=== PATIENT | male | born 1940 | race Two or more races ===

== ENCOUNTER 2021-07-06 10:49 | Emergency (ER) | payer OTHER ==
[~2021-07-06] VITALS: Ht 172.7 cm; Wt 85.7 kg
[2021-07-06 10:49] VITALS: BP 144/83
== END 2021-07-06 14:18 | disposition home or self-care (01) ==
LOC: ER 10:49
DX: M51.36 Other intervertebral disc degeneration, lumbar region (principal); M25.551 Pain in right hip; I10 Essential (primary) hypertension; E11.9 Type 2 diabetes mellitus without complications; E78.5 Hyperlipidemia, unspecified
CPT/HCPCS: 72131; 73502

== ENCOUNTER 2024-04-02 05:53 | Inpatient (IN) | payer OTHER ==
[~2024-04-02] VITALS: Ht 180.3 cm; Wt 75.0 kg
[2024-04-02 07:31] LABS: Urine Bacteria None Seen /hpf (None Seen); Urine WBC None Seen /hpf (0 - 3)
[2024-04-02 07:31] LABS: Basophils # (auto) 0 10 ^3/uL (0-0.2); Basophils % (auto) 1.1 % (0.0-2.0); Eosinophils # (auto) 0.1 10 ^3/uL (0-0.8); Eosinophils % (auto) 1.3 % (0.0-7.0); Hematocrit 36.3 % (41.0-53.0); Lymphocytes # (auto) 1.2 10 ^3/uL (0.4-5.4); Lymphocytes % (auto) 26.9 % (10.0-50.0); Mean Corpuscular Hemoglobin 28.2 pg (28.0-32.0); Mean Corpuscular Volume 85.4 fL (80.0-100.0); Monocytes # (auto) 0.6 10 ^3/uL (0-1.3); Monocytes % (auto) 14.1 % (0.0-12.0); Neutrophils # (auto) 2.4 10 ^3/uL (1.6-8.6); Neutrophils % (auto) 56.6 % (37.0-80.0); Nucleated Red Blood Cells % 0.1 %; Red Blood Cells 4.25 10^6/uL (4.5-5.90); Red Cell Distribution Width 14.9 % (11.8-14.3); White Blood Cell 4.3 10^3/uL (4.4-10.8)
[2024-04-02 07:37] LABS: Urine Blood Negative /uL (Negative); Urine Clarity Clear (Clear); Urine Color Colorless (Yellow); Urine Protein, UAD Negative (Negative); Urine Specific Gravity 1.009 (1.001-1.035); Urine Urobilinogen Normal (Negative)
[2024-04-02 07:37] LABS: Chloride 105 mmol/L (98-107); Potassium 3.7 mmol/L (3.5-5.1); Sodium 141 mmol/L (136-145)
[2024-04-02 07:38] LABS: Anion Gap 7 (5-15); Carbon Dioxide 29 mmol/L (20-30)
[2024-04-02 07:39] LABS: Calcium 10.1 mg/dL (8.7-10.4)
[2024-04-02 07:43] LABS: Glucose 105 mg/dL (74-106)
[2024-04-02 07:44] LABS: BUN/Creatinine Ratio 18.9 (10.0-20.0); Blood Urea Nitrogen 25 mg/dL (9-23)
[2024-04-02 09:11] VITALS: O2SAT 98
[2024-04-02] MEDS ORDERED: SITA50TA PO (11:41)
[2024-04-02] MEDS ORDERED: METO-289 PO (11:41)
[2024-04-02] MEDS ORDERED: LOSA-535 PO (11:41)
[2024-04-02] MEDS ORDERED: AMLO1TAB23 PO (11:41)
[2024-04-02] MEDS ORDERED: ONDANSETRON HCL 4 MG/2 ML VIAL IV PRN (11:45)
[2024-04-02] MEDS ORDERED: DEXTROSE (50%) 50ML SYRG IV PRN (11:45)
[2024-04-02] MEDS: ENOXAPARIN SOD 30 MG/0.3 ML SYRINGE SC SCH (11:45)
[2024-04-02 12:02] LABS: Triglycerides 176 mg/dL (< 150)
[2024-04-02 12:03] LABS: LDL Cholesterol 90 mg/dL (< 100)
[2024-04-02 12:04] LABS: Cholesterol 169 mg/dL (< 200); HDL Cholesterol 36 mg/dL (40-59)
[2024-04-02] MEDS: DOCUSATE SOD 100 MG CAP PO ONE (12:55)
[2024-04-02] MEDS: SODIUM CHLORIDE 0.9% 1,000 ML IV SCH (12:56)
[2024-04-02] MEDS: MORPHINE SULFATE INJ 2 MG/ml SYRG IV ONE (15:49)
[2024-04-02] MEDS: InsuLIN REG 1unit/0.01ml Soln (100units/ml) SC SCH (17:00)
[2024-04-02] MEDS: ACCU-CHEK COMFORT CURVE STRIP VI SCH (17:11)
[2024-04-02 19:30] VITALS: RESP 14; O2SAT 97
[2024-04-02] MEDS: DOCUSATE SOD 100 MG CAP PO SCH (22:20)
[2024-04-02 23:12] VITALS: BP 132/69; PULSE 53; RESP 17; TEMP 97.6; O2SAT 100
[2024-04-02 23:33] VITALS: BP 132/69; PULSE 53; RESP 17; TEMP 97.6; O2SAT 100
[2024-04-03] VITALS (8 sets, daily range): BP systolic 108–134; BP diastolic 36–83; PULSE 47–84; RESP 17–20; TEMP 97.3–98.3; O2SAT 94–100
[2024-04-03] MEDS ORDERED: HYDR25TA5 PO (02:31)
[2024-04-03] MEDS ORDERED: ATOR10TA PO (02:31)
[2024-04-03] MEDS ORDERED: PANC24002 PO (02:31)
[2024-04-03 07:05] LABS: Basophils # (auto) 0 10 ^3/uL (0-0.2); Eosinophils # (auto) 0.1 10 ^3/uL (0-0.8); Eosinophils % (auto) 1.4 % (0.0-7.0); Hematocrit 36.2 % (41.0-53.0); Hemoglobin 12.1 g/dL (13.5-17.5); Lymphocytes % (auto) 26.3 % (10.0-50.0); Mean Corpuscular Hemoglobin 28.7 pg (28.0-32.0); Mean Corpuscular Hgb Conc. 33.4 g/dL (32.0-36.0); Monocytes # (auto) 0.6 10 ^3/uL (0-1.3); Monocytes % (auto) 15.7 % (0.0-12.0); Neutrophils # (auto) 2.1 10 ^3/uL (1.6-8.6); Neutrophils % (auto) 55.6 % (37.0-80.0); Nucleated Red Blood Cells % 0.1 %; Red Blood Cells 4.21 10^6/uL (4.5-5.90); Red Cell Distribution Width 14.8 % (11.8-14.3); White Blood Cell 3.8 10^3/uL (4.4-10.8)
[2024-04-03 07:54] LABS: Alanine Aminotransferase 12 U/L (7-40); Albumin 3.7 g/dL (3.2-4.8); Alkaline Phosphatase 63 U/L (46-116); Anion Gap 10 (5-15); Aspartate Aminotransferase 12 U/L (13-40); Blood Urea Nitrogen 12 mg/dL (9-23); Calcium 9.4 mg/dL (8.7-10.4); Carbon Dioxide 24 mmol/L (20-30); Chloride 106 mmol/L (98-107); Glucose 81 mg/dL (74-106); Potassium 3.2 mmol/L (3.5-5.1); Sodium 140 mmol/L (136-145); Total Protein 6.5 g/dL (5.7-8.2)
[2024-04-03 08:36] LABS: Bilirubin, Total 0.7 mg/dL (0.2-1.0)
[2024-04-03] MEDS: LACTULOSE 20Gm/30ML SOLN PO ONE (15:45)
[2024-04-04 05:00] VITALS: BP 106/73; PULSE 53; RESP 19; TEMP 98.5; O2SAT 99
[2024-04-04 08:08] VITALS: O2SAT 95
[2024-04-04 08:43] VITALS: BP 132/76; PULSE 57; RESP 20; TEMP 97.6; O2SAT 100
[2024-04-04 08:57] LABS: Hepatitis B Surface Antigen Negative (Negative)
[2024-04-04 09:17] LABS: Hepatitis C Antibody Negative (Negative)
[2024-04-04 11:46] LABS: Chloride 107 mmol/L (98-107); Potassium 3.3 mmol/L (3.5-5.1); Sodium 141 mmol/L (136-145)
[2024-04-04 11:47] LABS: Anion Gap 5 (5-15); Calcium 9.5 mg/dL (8.7-10.4); Carbon Dioxide 29 mmol/L (20-30)
[2024-04-04 11:52] LABS: BUN/Creatinine Ratio 13.5 (10.0-20.0); Blood Urea Nitrogen 13 mg/dL (9-23); Glucose 105 mg/dL (74-106)
[2024-04-04 11:53] LABS: Magnesium 1.5 mg/dL (1.6-2.6)
[2024-04-04] MEDS: CREON 24000 UNIT PO SCH (12:00)
[2024-04-04 12:28] VITALS: BP 133/74; PULSE 64; RESP 20; TEMP 97.7; O2SAT 100
[2024-04-04] MEDS: MAGNESIUM OXIDE 400 MG TAB PO ONE (13:38)
[2024-04-04] MEDS: POTASSIUM CHL 20 Meq TABLET PO ONE (13:39)
== END 2024-04-04 16:20 | disposition home or self-care (01) | DRG 388 ==
LOC: ER 05:53 → OVERFLOW 11:35 → WEST WING 22:39
PROVIDERS: ADMIT Registered Nurse; ATTEND Internal Medicine
DX: K56.609 Unspecified intestinal obstruction, unspecified as to partial versus complete obstruction (principal); N17.0 Acute kidney failure with tubular necrosis; K56.7 Ileus, unspecified; R62.7 Adult failure to thrive; E86.0 Dehydration; K59.00 Constipation, unspecified; N18.9 Chronic kidney disease, unspecified; D63.1 Anemia in chronic kidney disease; E11.22 Type 2 diabetes mellitus with diabetic chronic kidney disease; I12.9 Hypertensive chronic kidney disease with stage 1 through stage 4 chronic kidney disease, or unspecified chronic kidney disease; N28.1 Cyst of kidney, acquired; E78.00 Pure hypercholesterolemia, unspecified; Z68.23 Body mass index [BMI] 23.0-23.9, adult
CPT/HCPCS: 36415; 74018; 74176; 76775; 80048; 80053; 80061; 81001; 82962; 83036; 83735; 85025; 86803; 87340; 93005; 97110; 97116; 97163; G0378; J2405

== ENCOUNTER 2025-09-08 07:57 | Emergency (ER) | payer OTHER ==
[~2025-09-08] VITALS: Ht 182.9 cm; Wt 77.0 kg
[~2025-09-08 07:57] MED LIST: AMLO1TAB23 PO; ATOR10TA PO; HYDR25TA5 PO; LOSA-535 PO; METO-289 PO; PANC2400 PO; SITA50TA PO
--- NOTE | 2025-09-08 09:07 | DVH ---
EXAM: CT HEAD WITHOUT CONTRAST INDICATION: fall TECHNIQUE: CT of the head without intravenous contrast. Coronal and sagittal reformatted images are submitted. Radiation Dose : 1. Head: CT Dose: CTDI volume is 53.5 mGy. Dose-length product is 966.44 mGy*cm The dose indicators for CT are the volume Computed Tomography (CT) Dose Index (CTDIvol) and the Dose Length Product (DLP), and are measured in units of mGy and mGy-cm, respectively. These indicators are not patient dose, but values generated from the CT scanner acquisition factors. The report includes radiation exposure data for exposures received during this examination. All CT scans at this medical facility are performed using dose modulation techniques as appropriate to a performed exam including the following: Automated exposure control was utilized; adjustment of the MA and/or KV according to patient size; and use of iterative reconstruction technique. COMPARISON: None FINDINGS: There is no evidence of acute intracranial hemorrhage, extra-axial collection, mass effect, midline shift, herniation or hydrocephalus. The ventricles, sulci and cisterns are age appropriate. The conway-white differentiation is intact. The mastoid air cells are clear. There is mild mucosal thickening in the maxillary sinuses. There is nodular hyperdensity in the left ocular globe. Left periorbital soft tissue swelling noted. No depressed calvarial fracture. The surrounding soft tissues are unremarkable. IMPRESSION: 1. No acute intracranial abnormality. 2. Nodular hyperdensity in the left ocular globe and left periorbital soft tissue swelling. Correlate with ophthalmologic examination.
--- NOTE | 2025-09-08 09:19 | ED.PDOC ---
Eye-HPI HPI Comments 84 year old male presents to the ED with a chief complaint of fall injury onset today around 07:30. Patient states he was walking, tripped on a curb, landed face forward. Patient is currently bleeding from LT eye. 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 He is currently experiencing headache, rates pain 10/10, is also experiencing dizziness. He has abrasion to RT forehead. Denies LOC, chest pain, shortness of breath, fever, chills, nausea, vomiting, diarrhea, abdominal pain. No other symptoms or modifying factors present at this time. Chief Complaint: Fall Injury Time Seen by MD: 09:15 Reviewed Notes: Medications, Allergies Allergies: Coded Allergies: NO KNOWN ALLERGIES (Unverified , 04/02/24) Home Meds Reported Medications Atorvastatin Calcium (Lipitor) 10 Mg Tab, 1 TAB PO DAILY, #30 TAB 5 Refills 04/03/24 Hctz (Hydrochlorothiazide) 25 Mg Tab, 1 TAB PO DAILY 04/03/24 Pancreatic Enzymes (Creon) 24,000 Unt Cap, 1 CAP PO TID 04/03/24 Amlodipine Besylate (Amlodipine Besylate) 10 Mg Tab, 1 TAB PO DAILY 04/02/24 Sitagliptin Phosphate (Januvia) 50 Mg Tab, 1 TAB PO DAILY 04/02/24 Losartan Potassium (Losartan Potassium) 100 Mg Tab, 1 TAB PO DAILY 04/02/24 Metoprolol Succinate (Metoprolol Succinate Er) 50 Mg Tab, 1 TAB PO DAILY 04/02/24 Information Source: Spouse Mode of Arrival: Ambulatory Timing: Hours Duration: Since onset Prehospital treatment: None Past Medical History PAST MEDICAL HISTORY: DM, High Lipids, HTN Surgical History: Denies all surgeries Family History Family History: Family hx of heart cody Social History Smoker: Non-Smoker Alcohol: Denies ETOH Use Drugs: Denies Drug Use Lives In: Home Constitutional: denies: chills, diaphoresis, fatigue, fever, malaise, sweats, weakness, others EENTM: reports: eye pain (LT); denies: blurred vision, double vision, ear bleeding, ear discharge, ear drainage, ear pain, ear ringing, eye redness, hearing loss, mouth pain, mouth swelling, nasal discharge, nose bleeding, nose congestion, nose pain, photophobia, tearing, throat pain, throat swelling, voice changes, others Respiratory: denies: cough, hemoptysis, orthopnea, SOB at rest, shortness of breath, SOB with excertion, stridor, wheezing, others Cardiovascular: denies: chest pain, dizzy spells, diaphoresis, Dyspnea on exertion, edema, irregular heart beat, left arm pain, lightheadedness, palpitations, PND, syncope, others Gastrointestinal: denies: abdomen distended, abdominal pain, blood streaked bowels, constipated, diarrhea, dysphagia, difficulty swallowing, hematemesis, melena, nausea, poor appetite, poor fluid intake, rectal bleeding, rectal pain, vomiting, others Genitourinary: denies: burning, dysuria, flank pain, frequency, hematuria, incontinence, penile discharge, penile sore, pain, testicle pain, testicle swelling, urgency, others Neurological: reports: headache; denies: dizziness, fainting, left sided numbness, left sided weakness, numbness, paresthesia, pre-existing deficit, right sided numbness, right sided weakness, seizure, speech problems, tingling, tremors, weakness, others Musculoskeletal: denies: back pain, gout, joint pain, joint swelling, muscle pain, muscle stiffness, neck pain, others Integumetry: denies: bruises, change in color, change in hair/nails, dryness, laceration, lesions, lumps, rash, wounds, others Allergic/Immunocompromised: denies: Difficulty Healing, Frequent Infections, Hives, Itching, others Hematologic/Lymphatic: denies: anemia, blood clots, easy bleeding, easy bruis ing, swollen glands, others Endocrine: denies: excessive hunger, excessive sweating, excessive thirst, exc essive urination, flushing, intolerance to cold, intolerance to heat, unexplained weight gain, unexplained weight loss, others Psychiatric: denies: anxiety, bipolar disorder, depression, hopeless, panic disorder, schizophrenia, sleepless, suicidal, others All Other Systems: Reviewed and Negative Physical Exam General Appearance: Moderate Distress HEENT: Other (Obvious foreign body with an open globe injury to left eye) Neck: Normal Inspection Respiratory: No Respiratory Distress Cardiovascular: No Edema Breast Exam: Deferred Gastrointestinal: No Organomegaly Genitalia: Deferred Pelvic: Normal Adnexa Rectal: Deferred Extremities: No pedal edema Neurologic: No Motor Deficits Cerebellar Function: NOT DONE Reflexes: NOT DONE Skin: Normal Color Lymphatic: NOT DONE Was a procedure done? Was a procedure done?: No EENT DIFF Eye: Other (Foreign body) Ear: N/A Nose: N/A Mouth: N/A Sore Throat: N/A X-Ray, Labs, Meds, VS Vital Signs Date Time Temp Pulse Resp B/P (MAP) Pulse Ox O2 Delivery O2 Flow Rate FiO2 09/08/25 14:10 97.3 64 16 178/107 (130) 100 97.3 09/08/25 13:25 64 11 219/119 09/08/25 11:23 61 16 202/97 09/08/25 10:00 94 13 190/104 (132) 94 09/08/25 09:45 58 20 187/99 09/08/25 09:36 Room Air* 0 21 09/08/25 09:36 97.3 58 20 187/99 (128) 100 97.3 09/08/25 08:01 97.0 66 13 128/91 100 97.0 [place] [address] Ph: [phone] DIAGNOSTIC IMAGING Diagnostic Imaging Report : [id number] Signed PATIENT: HEBERT BLACKMAN ACCT: [id number] UNIT: [id number] : 1940 LOC: ER ROOM / BED: / AGE / SEX: 84 / M ADM STATUS: REG ER SERVICE 3 ORDERING PHYSICIAN: MICHELLE PIERRE MD PROCEDURE(s): HWOCT - HEAD WITHOUT CONTRAST REASON: fall ORDER NUMBER(s): [id number], ACCESSION NUMBER(s): [id number] EXAM: CT HEAD WITHOUT CONTRAST INDICATION: fall TECHNIQUE: CT of the head without intravenous contrast. Coronal and sagittal reformatted images are submitted. Radiation Dose : 1. Head: CT Dose: CTDI volume is 53.5 mGy. Dose-length product is 966.44 mGy*cm The dose indicators for CT are the volume Computed Tomography (CT) Dose Index (CTDIvol) and the Dose Length Product (DLP), and are measured in units of mGy and mGy-cm, respectively. These indicators are not patient dose, but values generated from the CT scanner acquisition factors. The report includes radiation exposure data for exposures received during this examination. All CT scans at this medical facility are performed using dose modulation techniques as appropriate to a performed exam including the following: Automated exposure control was utilized; adjustment of the MA and/or KV according to patient size; and use of iterative reconstruction technique. COMPARISON: None FINDINGS: There is no evidence of acute intracranial hemorrhage, extra-axial collection, mass effect, midline shift, herniation or hydrocephalus. The ventricles, sulci and cisterns are age appropriate. The conway-white differentiation is intact. The mastoid air cells are clear. There is mild mucosal thickening in the maxillary sinuses. There is nodular hyperdensity in the left ocular globe. Left periorbital soft tissue swelling noted. No depressed calvarial fracture. The surrounding soft tissues are unremarkable. IMPRESSION: 1. No acute intracranial abnormality. 2. Nodular hyperdensity in the left ocular globe and left periorbital soft tissue swelling. Correlate with ophthalmologic examination. ATED BY: ZACH PAREDES MD DICTATED DATE/TIME: 09/08/25904 SIGNED BY: ZACH PAREDES MD SIGNED DATE/TIME: 09/08/25904 CC: Time of 1ST Reevaluation: 09:45 Reevaluation 1ST: Unchanged Patient Education/Counseling: Diagnosis, Treatment, Need For Follow Up Family Education/Counseling: Diagnosis, Treatment, Need For Follow Up SEPSIS Sepsis Screen Date sepsis recognized/suspect: Sep 08, 2025 Time Sepsis recognized/suspect: 0801 Recent Procedure: No On Antibiotic Therapy: No Respiratory Rate >20: No Heart Rate >90: No Temp<36 C (96.8 F) or >38.3 C: No SBP <90 or MAP <65 mmHG: No New Acute Mental Status Change: No Is the patient on CPAP, BIPAP,: No Physician Orders Head Without Contrast (09/08/25 08:24) Imaging Transfer Request (09/08/25 09:19) Vital Signs Date Time Temp Pulse Resp B/P (MAP) Pulse Ox O2 Delivery O2 Flow Rate FiO2 09/08/25 14:10 97.3 64 16 178/107 (130) 100 97.3 09/08/25 13:25 64 11 219/119 09/08/25 11:23 61 16 202/97 09/08/25 10:00 94 13 190/104 (132) 94 09/08/25 09:45 58 20 187/99 09/08/25 09:36 Room Air* 0 21 09/08/25 09:36 97.3 58 20 187/99 (128) 100 97.3 09/08/25 08:01 97.0 66 13 128/91 100 97.0 Departure 1 Departure Time of Disposition: 16:16 (Patient with a foreign body of the eye. Patient emergently transferred to retinal ophthalmology specialist.) Impression: Primary Impression: Eye injury, penetrating Disposition: 02 SHORT TERM HOSPITAL Condition: Guarded Critical Care Note Critical Care Time?: Yes Critical care comment: Open globe injury to the left eye with foreign body Authorized and Performed by: Michelle Pierre MD Total critical care time: Approximately 126 minutes Due to a high probability of clinically significant, life threatening de terioration, the patient required my highest level of preparedness to intervene emergently and I personally spent this critical care time directly and personally managing the patient. This critical care time included obtaining a history; examining the patient; pulse oximetry; ordering and review of studies; arranging urgent treatment with development of a management plan; evaluation of patient's response to treatment; frequent reassessment; and, discussions with other providers. This critical care time was performed to assess and manage the high probability of imminent, life-threatening deterioration that could result in multi-organ failure. It was exclusive of separately billable procedures and treating other patients and teaching time. Please see my other sections and the rest of the note for further information on patient assessment and treatment. Stability Stability form required: No I personally scribed for MICHELLE PIERRE MD ([email or web address]) on 09/08/25 at 09:19. Electronically submitted by Lashawn Bess ([email or web address]). MICHELLE PIERRE MD Sep 08, 2025 09:19
[2025-09-08] MEDS: SODIUM CHLORIDE 0.9% 1,000 ML IV ONE (09:42)
[2025-09-08] MEDS: ONDANSETRON HCL 4 MG/2 ML VIAL IV ONE (09:45)
[2025-09-08] MEDS: MORPHINE SULFATE 4 MG/ML SYR/VIAL IV ONE (09:45)
[2025-09-08] MEDS: HYDROmorphone HCL 2 MG/ML VL/or syr IV ONE ×2 (11:23→13:25)
[2025-09-08 14:10] VITALS: BP 178/107; PULSE 64; RESP 16; TEMP 97.3; O2SAT 100
== END 2025-09-08 14:20 | disposition short-term general hospital (02) ==
LOC: ER 07:57
DX: S05.90XA Unspecified injury of unspecified eye and orbit, initial encounter (principal); E11.9 Type 2 diabetes mellitus without complications; Z79.899 Other long term (current) drug therapy; W01.0XXA Fall on same level from slipping, tripping and stumbling without subsequent striking against object, initial encounter; Y93.01 Activity, walking, marching and hiking; Y92.89 Other specified places as the place of occurrence of the external cause; Y99.8 Other external cause status
CPT/HCPCS: 70450; 96361; 96374; 96375; 96376; 99291; 99292; J1171; J2270; J2405; J7030